=== PATIENT | female | born 1975 | race Two or more races ===

== ENCOUNTER 2018-11-24 15:20 | Outpatient (CLI) | payer OTHER | END 2018-11-24 15:21 | disposition home or self-care (01) | LOC: RAD 15:20 | DX: R05 Cough (principal) ==

== ENCOUNTER 2018-12-07 10:36 | Outpatient (CLI) | payer OTHER | END 2018-12-07 10:46 | disposition home or self-care (01) | LOC: NUCLEAR 10:36 | DX: I49.3 Ventricular premature depolarization (principal) ==

== ENCOUNTER 2021-05-23 05:50 | Day surgery (SDC) | payer OTHER ==
[~2021-05-23 05:50] MED LIST: KEPPRA1000 MG PO; LEXAPRO PO; LIPITOR PO
[2021-05-23] MEDS ORDERED: ATORVASTATIN CA20 MG (07:50)
[2021-05-23] MEDS ORDERED: ESCITALOPRAM OX10 MG (07:50)
[2021-05-23] MEDS ORDERED: LAMICTAL100 MG (07:51)
== END 2021-05-23 17:30 | disposition home or self-care (01) ==
LOC: SURH 05:50 → CIR.AMB 05:50 → O/R 05:50 → EDSTATUS 07:00 → SURH 07:00 → O/R 17:30 → CIR.AMB 17:30
PROVIDERS: ATTEND Obstetrics & Gynecology
DX: N64.81 Ptosis of breast (principal); N62 Hypertrophy of breast; N72 Inflammatory disease of cervix uteri; D24.2 Benign neoplasm of left breast; D24.1 Benign neoplasm of right breast; N81.10 Cystocele, unspecified; N81.85 Cervical stump prolapse